=== PATIENT | female | born 1965 | race Caucasian/White ===

== ENCOUNTER → 2017-09-01 | Outpatient (CLI) | payer OTHER ==
--- NOTE | 2017-09-01 09:44 | DIAGNOSTIC IMAGING REPORT ---
RENAL ULTRASOUND HISTORY: HEMATURIA COMPARISON: None. FINDINGS: Right kidney: 12.7 cm. No hydronephrosis. Normal corticomedullary differentiation and cortical thickness. Left kidney: 11.7 cm. No hydronephrosis. Normal corticomedullary differentiation and cortical thickness. Bladder: No bladder wall thickening. The bilateral ureteral jets were identified. Miscellaneous: Hepatic steatosis. IMPRESSION: Normal renal ultrasound. Electronically signed by: Wilberto Truong M.D. 09/01/2017 9:43 AM Dictated Date/Time: 09/01/2017 9:42 AM
== END | disposition home or self-care (01) ==
LOC: C.ULTR 08:59
PROVIDERS: ATTEND Urology
DX: R31.0 Gross hematuria (principal)